=== PATIENT | male | born 1980 | race Caucasian/White ===

== ENCOUNTER 2023-12-05 12:42 | Outpatient (CLI) | payer BC, SELFPAY ==
--- NOTE | 2023-12-05 08:36 | DI.RAD_ITS ---
Exam(s) XR KNEE RT 4V AP,LAT,CRISTO,PAT EXAM: XR KNEE RT 4V AP,LAT,CRISTO,PAT CLINICAL HISTORY: right knee pain. TECHNIQUE: 2D digital imaging was performed of the right knee. Four views obtained. Merchant, AP, la teral and PA tunnel views were obtained. COMPARISON: No exams were available for comparison FINDINGS: BONES: No acute fracture is present. No bony destructive lesion is seen. JOINTS: The knee is normally aligned. There is a small joint effusion. The joint spaces are well taylor ntained. SOFT TISSUE: Normal. IMPRESSION: Small joint effusion. Otherwise unremarkable examination. DATA REPOSITORY: RADIATION DOSE DELIVERED:
== END 2023-12-05 12:43 | disposition home or self-care (01) ==
LOC: DIORS 12:42
PROVIDERS: PCP Family Medicine; Visit Provider Physician Assistant
DX: M25.561 Pain in right knee (principal)
CPT/HCPCS: 73564

== ENCOUNTER 2023-12-28 04:25 | Outpatient (CLI) | payer BC, SELFPAY ==
[2023-12-28 09:06] LABS: ALT 34 U/L (16-63); AST 16 U/L (15-37); Alkaline Phosphatase 92 U/L (46-116); Anion Gap 7.8 mmol/L (3-11); BUN 20 mg/dL (7-18); Bilirubin, Total 0.4 mg/dL (0.2-1.0); CO2 27.2 mmol/L (21.0-32.0); Calculated LDL 138 mg/dL (<100); Chloride 105 mmol/L (98-107); Cholesterol 249 mg/dL (<200); Estimated GFR 94.59 (mL/min/1.73m2); Glucose 94 mg/dL (74-106); HDL Cholesterol 106 mg/dL (40-60); Potassium 4.4 mmol/L (3.5-5.1); Sodium 140 mmol/L (136-145); Total Protein 7.9 g/dL (6.4-8.2); Triglyceride 26 mg/dL (<150)
[2023-12-28 18:31] LABS: HIV-1/2 Ag & Ab Screen Negative (Negative)
[2023-12-28 21:43] LABS: Hepatitis C Ab w Rflx HCV PCR Negative (Negative)
== END 2023-12-28 04:26 | disposition home or self-care (01) ==
LOC: LBO 04:25
PROVIDERS: PCP Family Medicine; Referring Provider Family Medicine; Visit Provider Family Medicine
DX: Z13.6 Encounter for screening for cardiovascular disorders (principal); Z11.3 Encounter for screening for infections with a predominantly sexual mode of transmission
CPT/HCPCS: 36415; 80053; 80061; 86803; 87389